=== PATIENT | male | born 1955 | race Caucasian/White ===

== ENCOUNTER 2021-04-16 12:57 | Inpatient (IN) ==
[2021-04-16] MEDS ORDERED: 0.9 % Sodium Chloride 1,000 ML IVC ONE ×2 (13:03→16:00)
[2021-04-16 13:25] LABS: Basophils % 0.2 %; Hematocrit 45.2 % (37.5-50.1); Hemoglobin 14.9 g/dL (12.9-16.9); Lymphocytes # 0.8 K/mcL (0.6-4.6); Mean Corpuscular Hemoglobin 29.4 pg (28.0-33.3); Mean Corpuscular Volume 89.3 fL (83.0-100.0); Mean Platelet Volume 10.9 fL (9.4-12.4); Monocytes # 0.7 K/mcL (0.0-1.3); Monocytes % 7.8 %; Neutrophils # 7.6 K/mcL (1.6-8.9); Platelet Count 251 K/mcL (140-400); Red Blood Count 5.06 M/mcL (4.19-5.50); Red Cell Distribution Width 13.7 % (11.5-14.5); White Blood Count 9.3 K/mcL (4.3-11.1)
[2021-04-16] MEDS ORDERED: GI Cocktail 40 ML EACH PO ONE (13:47)
[2021-04-16] MEDS ORDERED: Pantoprazole 40 MG VIAL IVP ONE (13:47)
[2021-04-16 13:50] LABS: Calcium 9.2 mg/dL (8.6-10.3); Potassium 5.1 mEq/L (3.5-5.1)
[2021-04-16] MEDS ORDERED: Insulin Human Regular 20 UNIT in 0.9 % Sodium Chloride 10 ML IV ONE (13:50)
[2021-04-16 16:28] LABS: Calcium 8.7 mg/dL (8.6-10.3)
[2021-04-16] MEDS ORDERED: cefTRIAXone 1,000 MG in Water for inj. (sterile) 10 ML IVP ONE (16:32)
[2021-04-16 19:17] LABS: ABG Base Excess -16 mEq/L (-2 to 3); ABG HCO3 8 mEq/L (21-27); ABG Oxygen Saturation 97 % (95-98); ABG PCO2 17 mmHg (35-45); ABG PH 7.28 pH Units (7.32-7.45); ABG PO2 98 mmHg (85-104); ABG TCO2 8 mEq/L (20-26)
[2021-04-17 07:45] LABS: Calcium 8.7 mg/dL (8.6-10.3); Potassium 4.2 mEq/L (3.5-5.1)
[2021-04-17 07:49] LABS: Bilirubin,Urine Large (Negative); Blood,Urine Negative (Negative); Clarity,Urine Clear (Clear); Color,Urine Yellow (Yellow); Glucose,Urine (UA) >=1000 mg/dL (Normal); Ketones,Urine 80 mg/dL (Negative); Leukocyte Esterase,Urine Negative (Negative); Nitrite,Urine Negative (Negative); Protein,Urine 30 mg/dL (Neg-Trace); Specific Gravity,Urine >= 1.030 (1.010-1.025); Urobilinogen,Urine Normal (Normal)
[2021-04-17 08:07] LABS: Hyaline Casts,Urine Few per lpf (None Seen); Mucus,Urine Few per lpf (None-Few)
[2021-04-17 08:08] LABS: Bacteria,Urine Moderate per hpf (None-Few); WBC,Urine 0-3 per hpf (0-3)
[2021-04-17 08:29] LABS: ABG Base Excess -11 mEq/L (-2 to 3); ABG HCO3 13 mEq/L (21-27); ABG Oxygen Saturation 95 % (95-98); ABG PCO2 23 mmHg (35-45); ABG PH 7.36 pH Units (7.32-7.45); ABG PO2 78 mmHg (85-104); ABG TCO2 14 mEq/L (20-26)
[2021-04-17] MEDS ORDERED: Naloxone 0.4 MG/ML INJ IVP PRN (10:14)
[2021-04-17] MEDS ORDERED: Dextrose Gel 15 GM/37.5 ML TUBE PO PRN ×2 (10:19)
[2021-04-17] MEDS ORDERED: D5% in Water 1,000 ML IVC PRN (10:19)
[2021-04-17] MEDS ORDERED: *HR* Dextrose 50 % in Water (Syg) 50 ML SYRINGE IVP PRN (10:19)
[2021-04-17] MEDS ORDERED: hydrALAZINE 10 MG TABLET PO PRN (11:04)
[2021-04-17] MEDS: 0.9 % Sodium Chloride 1,000 ML IVC SCH ×2 (12:14→20:21)
[2021-04-17] MEDS: Insulin LISPRO 300 UNITS/3 ML VIAL SUBQ SCH ×3 (12:25→20:21)
[2021-04-17] MEDS: Famotidine 20 MG TABLET PO SCH ×2 (12:29→20:20)
[2021-04-17] MEDS: amLODIPine 5 MG TABLET PO SCH (12:29)
[2021-04-17 17:50] LABS: Estimated Average Glucose 355 mg/dl
[2021-04-17] MEDS ORDERED: Acetaminophen 325 MG TABLET PO PRN (20:43)
[2021-04-17] MEDS ORDERED: *HR* LORazepam 1 MG TABLET PO ONE (23:09)
[2021-04-18 04:35] LABS: Basophils % 0.2 %; Hematocrit 38.9 % (37.5-50.1); Hemoglobin 13.8 g/dL (12.9-16.9); Immature Granulocytes % 0.7 % (0-4); Lymphocytes # 0.8 K/mcL (0.6-4.6); Lymphocytes % 14.5 %; Mean Corpuscular HGB Conc 35.5 g/dL (31.6-35.5); Mean Corpuscular Hemoglobin 29.6 pg (28.0-33.3); Mean Corpuscular Volume 83.5 fL (83.0-100.0); Mean Platelet Volume 10.8 fL (9.4-12.4); Monocytes # 0.7 K/mcL (0.0-1.3); Monocytes % 13.2 %; Neutrophils # 3.9 K/mcL (1.6-8.9); Platelet Count 165 K/mcL (140-400); Red Blood Count 4.66 M/mcL (4.19-5.50); Red Cell Distribution Width 13.8 % (11.5-14.5); Segmented Neutrophils % 71.4 %; White Blood Count 5.5 K/mcL (4.3-11.1)
[2021-04-18 04:47] LABS: Alanine Aminotransferase 7 Units/L (7-52); Albumin 3.2 g/dL (3.5-5.7); Alkaline Phosphatase 48 Units/L (34-104); Aspartate Amino Transferase 12 Units/L (13-39); BUN/Creatinine Ratio 24 (6-26); Bilirubin,Total 0.4 mg/dL (0.3-1.0); Blood Urea Nitrogen 30 mg/dL (8-23); Calcium 8.4 mg/dL (8.6-10.3); Carbon Dioxide 18 mEq/L (23-29); Chloride 98 mEq/L (98-107); Globulin 3.2 g/dL (2.4-3.5); Glucose 317 mg/dL (70-105); Osmolality,Calculated 300 (280-300); Sodium 136 mEq/L (136-145); Total Protein 6.4 g/dL (6.4-8.9); eGFR For African Americans > 60 (> 60); eGFR For Non-African Americans 58 (> 60)
[2021-04-18 04:48] LABS: BUN/Creatinine Ratio 23 (6-26); Blood Urea Nitrogen 29 mg/dL (8-23); Calcium 8.4 mg/dL (8.6-10.3); Carbon Dioxide 19 mEq/L (23-29); Chloride 98 mEq/L (98-107); Glucose 312 mg/dL (70-105); Osmolality,Calculated 300 (280-300); Sodium 136 mEq/L (136-145); eGFR For African Americans > 60 (> 60); eGFR For Non-African Americans 58 (> 60)
[2021-04-18] MEDS: *HR* Enoxaparin 40 MG/0.4 ML SYRINGE SQ SCH (06:11)
[2021-04-18] MEDS: Celecoxib 100 MG CAPSULE PO SCH (08:51)
[2021-04-18] MEDS: Fenofibrate 54 MG TABLET PO SCH (08:51)
[2021-04-18] MEDS: Famotidine 20 MG TABLET PO SCH ×2 (08:51→20:21)
[2021-04-18] MEDS: amLODIPine 5 MG TABLET PO SCH (08:51)
[2021-04-18] MEDS: Insulin LISPRO 300 UNITS/3 ML VIAL SUBQ SCH ×4 (08:52→20:22)
[2021-04-18] MEDS: 0.9 % Sodium Chloride w KCl 20 MEQ/1,000 ML MLS IVC SCH ×7 (09:08→09:55)
[2021-04-18] MEDS: 0.9 % Sodium Chloride 1,000 ML IVC SCH ×2 (10:42→20:34)
[2021-04-19] MEDS: 0.9 % Sodium Chloride 1,000 ML IVC SCH (04:58)
[2021-04-19] MEDS: *HR* Enoxaparin 40 MG/0.4 ML SYRINGE SQ SCH (04:58)
[2021-04-19 08:10] LABS: Basophils % 0.5 %; Hematocrit 39.7 % (37.5-50.1); Hemoglobin 13.2 g/dL (12.9-16.9); Immature Granulocytes % 1.4 % (0-4); Lymphocytes % 18.7 %; Mean Corpuscular HGB Conc 33.2 g/dL (31.6-35.5); Mean Corpuscular Hemoglobin 29.1 pg (28.0-33.3); Mean Corpuscular Volume 87.6 fL (83.0-100.0); Mean Platelet Volume 10.6 fL (9.4-12.4); Monocytes # 0.5 K/mcL (0.0-1.3); Monocytes % 8.3 %; Neutrophils # 3.9 K/mcL (1.6-8.9); Platelet Count 142 K/mcL (140-400); Red Blood Count 4.53 M/mcL (4.19-5.50); Red Cell Distribution Width 13.9 % (11.5-14.5); Segmented Neutrophils % 71.1 %; White Blood Count 5.6 K/mcL (4.3-11.1)
[2021-04-19 08:25] LABS: BUN/Creatinine Ratio 15 (6-26); Blood Urea Nitrogen 14 mg/dL (8-23); Calcium 7.9 mg/dL (8.6-10.3); Carbon Dioxide 14 mEq/L (23-29); Chloride 100 mEq/L (98-107); Glucose 264 mg/dL (70-105); Osmolality,Calculated 294 (280-300); Potassium 3.9 mEq/L (3.5-5.1); Sodium 137 mEq/L (136-145); eGFR For African Americans > 60 (> 60); eGFR For Non-African Americans > 60 (> 60)
[2021-04-19] MEDS: Insulin LISPRO 300 UNITS/3 ML VIAL SUBQ SCH ×4 (08:37→21:16)
[2021-04-19] MEDS: Celecoxib 100 MG CAPSULE PO SCH (08:38)
[2021-04-19] MEDS: Famotidine 20 MG TABLET PO SCH ×2 (08:38→21:10)
[2021-04-19] MEDS: Fenofibrate 54 MG TABLET PO SCH (08:38)
[2021-04-19] MEDS: amLODIPine 5 MG TABLET PO SCH (08:38)
[2021-04-19] MEDS ORDERED: Benzonatate 100 MG CAPSULE PO PRN (15:24)
[2021-04-20] MEDS: *HR* Enoxaparin 40 MG/0.4 ML SYRINGE SQ SCH (06:38)
[2021-04-20 07:04] LABS: Hematocrit 37.9 % (37.5-50.1); Hemoglobin 13.1 g/dL (12.9-16.9); Mean Corpuscular HGB Conc 34.6 g/dL (31.6-35.5); Mean Corpuscular Hemoglobin 29.4 pg (28.0-33.3); Mean Platelet Volume 10.6 fL (9.4-12.4); Platelet Count 161 K/mcL (140-400); Red Blood Count 4.46 M/mcL (4.19-5.50); Red Cell Distribution Width 13.6 % (11.5-14.5); White Blood Count 6.4 K/mcL (4.3-11.1)
[2021-04-20 07:35] LABS: BUN/Creatinine Ratio 13 (6-26); Blood Urea Nitrogen 12 mg/dL (8-23); Calcium 8.4 mg/dL (8.6-10.3); Carbon Dioxide 17 mEq/L (23-29); Chloride 99 mEq/L (98-107); Glucose 261 mg/dL (70-105); Osmolality,Calculated 295 (280-300); Potassium 3.9 mEq/L (3.5-5.1); Sodium 138 mEq/L (136-145); eGFR For African Americans > 60 (> 60); eGFR For Non-African Americans > 60 (> 60)
[2021-04-20] MEDS: Fenofibrate 54 MG TABLET PO SCH (08:32)
[2021-04-20] MEDS: Famotidine 20 MG TABLET PO SCH ×3 (08:32→21:50)
[2021-04-20] MEDS: Celecoxib 100 MG CAPSULE PO SCH (08:32)
[2021-04-20] MEDS: Insulin LISPRO 300 UNITS/3 ML VIAL SUBQ SCH ×5 (08:32→21:52)
[2021-04-20] MEDS: amLODIPine 5 MG TABLET PO SCH (08:33)
[2021-04-20] MEDS: polyethylene glycoL 3350 17 GM POWD.PACK PO SCH (16:58)
[2021-04-20] MEDS: QUEtiapine Fumarate 25 MG TABLET PO SCH ×2 (20:41→21:51)
[2021-04-20] MEDS ORDERED: QUEtiapine Fumarate 25 MG TABLET PO SCH (21:00)
[2021-04-21] MEDS: *HR* Enoxaparin 40 MG/0.4 ML SYRINGE SQ SCH (05:36)
[2021-04-21 07:18] LABS: Hematocrit 38.1 % (37.5-50.1); Hemoglobin 13.3 g/dL (12.9-16.9); Mean Corpuscular HGB Conc 34.9 g/dL (31.6-35.5); Mean Corpuscular Hemoglobin 29.4 pg (28.0-33.3); Mean Corpuscular Volume 84.3 fL (83.0-100.0); Mean Platelet Volume 10.3 fL (9.4-12.4); Platelet Count 174 K/mcL (140-400); Red Blood Count 4.52 M/mcL (4.19-5.50); Red Cell Distribution Width 13.2 % (11.5-14.5); White Blood Count 4.3 K/mcL (4.3-11.1)
[2021-04-21 07:35] LABS: Alanine Aminotransferase 7 Units/L (7-52); Albumin/Globulin Ratio 0.9 (1.1-2.2); Alkaline Phosphatase 52 Units/L (34-104); Aspartate Amino Transferase 13 Units/L (13-39); BUN/Creatinine Ratio 16 (6-26); Bilirubin,Total 0.4 mg/dL (0.3-1.0); Blood Urea Nitrogen 13 mg/dL (8-23); Calcium 8.7 mg/dL (8.6-10.3); Carbon Dioxide 24 mEq/L (23-29); Chloride 100 mEq/L (98-107); Globulin 3.3 g/dL (2.4-3.5); Glucose 315 mg/dL (70-105); Osmolality,Calculated 298 (280-300); Potassium 3.9 mEq/L (3.5-5.1); Sodium 138 mEq/L (136-145); Total Protein 6.3 g/dL (6.4-8.9); eGFR For African Americans > 60 (> 60); eGFR For Non-African Americans > 60 (> 60)
[2021-04-21] MEDS: Celecoxib 100 MG CAPSULE PO SCH (10:00)
[2021-04-21] MEDS: polyethylene glycoL 3350 17 GM POWD.PACK PO SCH (10:00)
[2021-04-21] MEDS: Insulin LISPRO 300 UNITS/3 ML VIAL SUBQ SCH ×4 (10:00→20:22)
[2021-04-21] MEDS: Famotidine 20 MG TABLET PO SCH ×2 (10:00→20:08)
[2021-04-21] MEDS: Fenofibrate 54 MG TABLET PO SCH (10:00)
[2021-04-21] MEDS: amLODIPine 5 MG TABLET PO SCH (10:00)
[2021-04-21 10:24] LABS: Lymphocytes # 1.5 K/mcL (0.6-4.6); Monocytes # 0.3 K/mcL (0.0-1.3); Neutrophils # 2.5 K/mcL (1.6-8.9); Platelet Estimate Normal (Normal)
[2021-04-21] MEDS: Insulin DETEMIR 100 UNIT/ML X5UNITS SUBQ SCH (17:37)
[2021-04-21] MEDS: QUEtiapine Fumarate 25 MG TABLET PO SCH (20:08)
[2021-04-21] MEDS ORDERED: Insulin DETEMIR 100 UNIT/ML X5UNITS SUBQ SCH (21:00)
[2021-04-22] MEDS: *HR* Enoxaparin 40 MG/0.4 ML SYRINGE SQ SCH (06:03)
[2021-04-22 07:59] LABS: Hematocrit 40.5 % (37.5-50.1); Hemoglobin 13.8 g/dL (12.9-16.9); Mean Corpuscular HGB Conc 34.1 g/dL (31.6-35.5); Mean Corpuscular Hemoglobin 29.4 pg (28.0-33.3); Mean Corpuscular Volume 86.4 fL (83.0-100.0); Mean Platelet Volume 10.8 fL (9.4-12.4); Platelet Count 188 K/mcL (140-400); Red Blood Count 4.69 M/mcL (4.19-5.50); Red Cell Distribution Width 13.3 % (11.5-14.5); White Blood Count 4.9 K/mcL (4.3-11.1)
[2021-04-22] MEDS: Insulin LISPRO 300 UNITS/3 ML VIAL SUBQ SCH ×4 (08:51→23:25)
[2021-04-22] MEDS: Insulin DETEMIR 100 UNIT/ML X5UNITS SUBQ SCH (08:51)
[2021-04-22] MEDS: polyethylene glycoL 3350 17 GM POWD.PACK PO SCH (08:51)
[2021-04-22] MEDS: Celecoxib 100 MG CAPSULE PO SCH (08:53)
[2021-04-22] MEDS: Famotidine 20 MG TABLET PO SCH ×2 (08:53→21:37)
[2021-04-22] MEDS: Fenofibrate 54 MG TABLET PO SCH (08:53)
[2021-04-22] MEDS: amLODIPine 5 MG TABLET PO SCH (08:54)
[2021-04-22 11:10] LABS: Lymphocytes # 1.7 K/mcL (0.6-4.6); Monocytes # 0.2 K/mcL (0.0-1.3); Platelet Estimate Normal (Normal); Smudge Cells Present (Not Present)
[2021-04-22] MEDS ORDERED: Insulin LISPRO 300 UNITS/3 ML VIAL SUBQ SCH (17:00)
[2021-04-22] MEDS ORDERED: Insulin DETEMIR 100 UNIT/ML X5UNITS SUBQ SCH (21:00)
[2021-04-22] MEDS: QUEtiapine Fumarate 25 MG TABLET PO SCH (21:37)
[2021-04-23] MEDS: *HR* Enoxaparin 40 MG/0.4 ML SYRINGE SQ SCH (05:04)
[2021-04-23 06:57] VITALS: BP 115/70; PULSE 115; RESP 18; TEMP 98.6; O2SAT 95
== END 2021-04-23 08:01 | DRG 177 ==
LOC: INPPIK 12:57 → EMEROOPIK 12:57 → INPPIK 04-17 10:50
PROVIDERS: ADMIT Internal Medicine; ATTEND Internal Medicine

== ENCOUNTER 2021-04-22 16:40 | Inpatient (IN) ==
[2021-04-22] MEDS ORDERED: D5% in Water 1,000 ML IVC PRN (16:59)
[2021-04-22] MEDS ORDERED: Dextrose Gel 15 GM/37.5 ML TUBE PO PRN ×2 (16:59)
[2021-04-22] MEDS ORDERED: *HR* Dextrose 50 % in Water (Syg) 50 ML SYRINGE IVP PRN (16:59)
[2021-04-22] MEDS ORDERED: Insulin DETEMIR 100 UNIT/ML X5UNITS SUBQ SCH (21:00)
[2021-04-23 06:53] LABS: Eosinophils # 0.1 K/mcL (0.0-0.6); Hematocrit 36.3 % (37.5-50.1); Hemoglobin 12.7 g/dL (12.9-16.9); Lymphocytes # 1.3 K/mcL (0.6-4.6); Mean Corpuscular Hemoglobin 29.6 pg (28.0-33.3); Mean Corpuscular Volume 84.6 fL (83.0-100.0); Platelet Count 161 K/mcL (140-400); Red Blood Count 4.29 M/mcL (4.19-5.50); Red Cell Distribution Width 12.9 % (11.5-14.5); White Blood Count 4.2 K/mcL (4.3-11.1)
[2021-04-23 07:25] LABS: BUN/Creatinine Ratio 16 (6-26); Blood Urea Nitrogen 11 mg/dL (8-23); Calcium 8.4 mg/dL (8.6-10.3); Carbon Dioxide 28 mEq/L (23-29); Chloride 101 mEq/L (98-107); Glucose 226 mg/dL (70-105); Osmolality,Calculated 292 (280-300); Potassium 3.3 mEq/L (3.5-5.1); Sodium 138 mEq/L (136-145); eGFR For African Americans > 60 (> 60); eGFR For Non-African Americans > 60 (> 60)
[2021-04-23 07:32] LABS: Large Platelets Present (Not Present); Monocytes # 0.5 K/mcL (0.0-1.3); Platelet Estimate Normal (Normal)
[2021-04-23] MEDS: Insulin LISPRO 300 UNITS/3 ML VIAL SUBQ SCH ×8 (08:55→21:03)
[2021-04-23] MEDS: amLODIPine 5 MG TABLET PO SCH (10:20)
[2021-04-23] MEDS: Fenofibrate 54 MG TABLET PO SCH (10:20)
[2021-04-23] MEDS: Celecoxib 100 MG CAPSULE PO SCH (10:21)
[2021-04-23] MEDS: Insulin DETEMIR 100 UNIT/ML X5UNITS SUBQ SCH ×2 (10:33→21:03)
[2021-04-23] MEDS ORDERED: Insulin LISPRO 300 UNITS/3 ML VIAL SUBQ SCH ×3 (11:30→17:00)
[2021-04-23] MEDS ORDERED: Potassium Chloride Elixir 20 MEQ/15 ML UDC PO ONE (12:36)
[2021-04-23] MEDS ORDERED: Insulin DETEMIR 100 UNIT/ML X5UNITS SUBQ SCH (21:00)
[2021-04-23] MEDS: Famotidine 20 MG TABLET PO SCH (21:03)
[2021-04-23] MEDS: QUEtiapine Fumarate 25 MG TABLET PO SCH (21:03)
[2021-04-24] MEDS: *HR* Enoxaparin 40 MG/0.4 ML SYRINGE SQ SCH (06:40)
[2021-04-24] MEDS: Fenofibrate 54 MG TABLET PO SCH (09:09)
[2021-04-24] MEDS: amLODIPine 5 MG TABLET PO SCH (09:09)
[2021-04-24] MEDS: Famotidine 20 MG TABLET PO SCH ×2 (09:09→21:00)
[2021-04-24] MEDS: Celecoxib 100 MG CAPSULE PO SCH (09:10)
[2021-04-24] MEDS: Insulin DETEMIR 100 UNIT/ML X5UNITS SUBQ SCH ×2 (09:12→21:00)
[2021-04-24] MEDS: Insulin LISPRO 300 UNITS/3 ML VIAL SUBQ SCH ×7 (09:13→21:01)
[2021-04-24] MEDS: QUEtiapine Fumarate 25 MG TABLET PO SCH (21:00)
[2021-04-25] MEDS: *HR* Enoxaparin 40 MG/0.4 ML SYRINGE SQ SCH (05:34)
[2021-04-25] MEDS: Insulin DETEMIR 100 UNIT/ML X5UNITS SUBQ SCH ×2 (09:28→21:28)
[2021-04-25] MEDS: Insulin LISPRO 300 UNITS/3 ML VIAL SUBQ SCH ×7 (09:29→21:29)
[2021-04-25] MEDS: amLODIPine 5 MG TABLET PO SCH (09:30)
[2021-04-25] MEDS: Famotidine 20 MG TABLET PO SCH ×2 (09:30→21:24)
[2021-04-25] MEDS: Celecoxib 100 MG CAPSULE PO SCH (09:30)
[2021-04-25] MEDS: Fenofibrate 54 MG TABLET PO SCH (09:30)
[2021-04-25] MEDS: QUEtiapine Fumarate 25 MG TABLET PO SCH (21:24)
[2021-04-26] MEDS: *HR* Enoxaparin 40 MG/0.4 ML SYRINGE SQ SCH (05:28)
[2021-04-26] MEDS: Insulin LISPRO 300 UNITS/3 ML VIAL SUBQ SCH ×7 (09:13→21:09)
[2021-04-26] MEDS: Famotidine 20 MG TABLET PO SCH ×2 (09:14→21:10)
[2021-04-26] MEDS: Fenofibrate 54 MG TABLET PO SCH (09:14)
[2021-04-26] MEDS: Celecoxib 100 MG CAPSULE PO SCH (09:14)
[2021-04-26] MEDS: Insulin DETEMIR 100 UNIT/ML X5UNITS SUBQ SCH ×2 (09:15→21:14)
[2021-04-26] MEDS: amLODIPine 5 MG TABLET PO SCH (09:15)
[2021-04-26] MEDS: QUEtiapine Fumarate 25 MG TABLET PO SCH (21:10)
[2021-04-27] MEDS: *HR* Enoxaparin 40 MG/0.4 ML SYRINGE SQ SCH (05:12)
[2021-04-27] MEDS: Insulin LISPRO 300 UNITS/3 ML VIAL SUBQ SCH ×7 (08:20→20:58)
[2021-04-27] MEDS: Insulin DETEMIR 100 UNIT/ML X5UNITS SUBQ SCH ×2 (08:21→21:02)
[2021-04-27] MEDS: Famotidine 20 MG TABLET PO SCH ×2 (08:21→21:03)
[2021-04-27] MEDS: Fenofibrate 54 MG TABLET PO SCH (08:21)
[2021-04-27] MEDS: amLODIPine 5 MG TABLET PO SCH (08:21)
[2021-04-27] MEDS: Celecoxib 100 MG CAPSULE PO SCH (08:21)
[2021-04-27] MEDS: QUEtiapine Fumarate 25 MG TABLET PO SCH (21:03)
[2021-04-28] MEDS: *HR* Enoxaparin 40 MG/0.4 ML SYRINGE SQ SCH (05:53)
[2021-04-28] MEDS: Fenofibrate 54 MG TABLET PO SCH (08:46)
[2021-04-28] MEDS: amLODIPine 5 MG TABLET PO SCH (08:46)
[2021-04-28] MEDS: Celecoxib 100 MG CAPSULE PO SCH (08:46)
[2021-04-28] MEDS: Famotidine 20 MG TABLET PO SCH ×2 (08:46→20:24)
[2021-04-28] MEDS: Insulin DETEMIR 100 UNIT/ML X5UNITS SUBQ SCH ×2 (08:50→20:24)
[2021-04-28] MEDS: Insulin LISPRO 300 UNITS/3 ML VIAL SUBQ SCH ×7 (08:53→20:24)
[2021-04-28] MEDS: polyethylene glycoL 3350 17 GM POWD.PACK PO SCH (20:19)
[2021-04-28] MEDS: Sennosides/Docusate Sodium TABLET PO PRN (20:24)
[2021-04-28] MEDS: QUEtiapine Fumarate 25 MG TABLET PO SCH (20:24)
[2021-04-29] MEDS: *HR* Enoxaparin 40 MG/0.4 ML SYRINGE SQ SCH (05:00)
[2021-04-29 06:43] LABS: Eosinophils # 0.1 K/mcL (0.0-0.6); Hematocrit 35.6 % (37.5-50.1); Hemoglobin 11.7 g/dL (12.9-16.9); Mean Corpuscular HGB Conc 32.9 g/dL (31.6-35.5); Mean Corpuscular Hemoglobin 29.1 pg (28.0-33.3); Mean Corpuscular Volume 88.6 fL (83.0-100.0); Mean Platelet Volume 9.7 fL (9.4-12.4); Nucleated Red Blood Cells 0.5 /100 WBC (0); Platelet Count 234 K/mcL (140-400); Red Blood Count 4.02 M/mcL (4.19-5.50); White Blood Count 6.3 K/mcL (4.3-11.1)
[2021-04-29 07:15] LABS: BUN/Creatinine Ratio 20 (6-26); Blood Urea Nitrogen 16 mg/dL (8-23); Calcium 7.9 mg/dL (8.6-10.3); Carbon Dioxide 22 mEq/L (23-29); Chloride 104 mEq/L (98-107); Glucose 218 mg/dL (70-105); Osmolality,Calculated 290 (280-300); Potassium 4.1 mEq/L (3.5-5.1); Sodium 136 mEq/L (136-145); eGFR For African Americans > 60 (> 60); eGFR For Non-African Americans > 60 (> 60)
[2021-04-29 08:09] LABS: Anisocytosis 1+ (Not Present); Lymphocytes # 2.4 K/mcL (0.6-4.6); Monocytes # 0.8 K/mcL (0.0-1.3); Neutrophils # 2.8 K/mcL (1.6-8.9); Platelet Estimate Normal (Normal); Polychromasia 1+ (Not Present)
[2021-04-29] MEDS: Famotidine 20 MG TABLET PO SCH ×2 (08:46→21:26)
[2021-04-29] MEDS: Celecoxib 100 MG CAPSULE PO SCH (08:46)
[2021-04-29] MEDS: amLODIPine 5 MG TABLET PO SCH (08:46)
[2021-04-29] MEDS: Fenofibrate 54 MG TABLET PO SCH (08:46)
[2021-04-29] MEDS: Sennosides/Docusate Sodium TABLET PO PRN (08:46)
[2021-04-29] MEDS: polyethylene glycoL 3350 17 GM POWD.PACK PO SCH (08:46)
[2021-04-29] MEDS: Insulin LISPRO 300 UNITS/3 ML VIAL SUBQ SCH ×7 (08:50→21:27)
[2021-04-29] MEDS: Insulin DETEMIR 100 UNIT/ML X5UNITS SUBQ SCH ×2 (09:30→21:26)
[2021-04-29] MEDS: QUEtiapine Fumarate 25 MG TABLET PO SCH (21:26)
[2021-04-30] MEDS: *HR* Enoxaparin 40 MG/0.4 ML SYRINGE SQ SCH (06:02)
[2021-04-30] MEDS: Fenofibrate 54 MG TABLET PO SCH (09:15)
[2021-04-30] MEDS: Famotidine 20 MG TABLET PO SCH ×2 (09:15→20:12)
[2021-04-30] MEDS: Celecoxib 100 MG CAPSULE PO SCH (09:15)
[2021-04-30] MEDS: Insulin DETEMIR 100 UNIT/ML X5UNITS SUBQ SCH ×2 (09:15→20:13)
[2021-04-30] MEDS: amLODIPine 5 MG TABLET PO SCH (09:15)
[2021-04-30] MEDS: Insulin LISPRO 300 UNITS/3 ML VIAL SUBQ SCH ×7 (09:16→20:16)
[2021-04-30] MEDS: polyethylene glycoL 3350 17 GM POWD.PACK PO SCH (09:19)
[2021-04-30] MEDS: QUEtiapine Fumarate 25 MG TABLET PO SCH (20:12)
[2021-05-01] MEDS: *HR* Enoxaparin 40 MG/0.4 ML SYRINGE SQ SCH (05:21)
[2021-05-01] MEDS: Fenofibrate 54 MG TABLET PO SCH (08:53)
[2021-05-01] MEDS: Insulin LISPRO 300 UNITS/3 ML VIAL SUBQ SCH ×7 (08:53→21:50)
[2021-05-01] MEDS: amLODIPine 5 MG TABLET PO SCH (08:54)
[2021-05-01] MEDS: Famotidine 20 MG TABLET PO SCH ×2 (08:54→21:43)
[2021-05-01] MEDS: Celecoxib 100 MG CAPSULE PO SCH (08:54)
[2021-05-01] MEDS: polyethylene glycoL 3350 17 GM POWD.PACK PO SCH (08:55)
[2021-05-01] MEDS: Insulin DETEMIR 100 UNIT/ML X5UNITS SUBQ SCH ×2 (08:55→21:43)
[2021-05-01] MEDS: QUEtiapine Fumarate 25 MG TABLET PO SCH (21:43)
[2021-05-02] MEDS: *HR* Enoxaparin 40 MG/0.4 ML SYRINGE SQ SCH (05:30)
[2021-05-02] MEDS: Insulin DETEMIR 100 UNIT/ML X5UNITS SUBQ SCH ×2 (09:10→21:14)
[2021-05-02] MEDS: amLODIPine 5 MG TABLET PO SCH (09:10)
[2021-05-02] MEDS: Fenofibrate 54 MG TABLET PO SCH (09:10)
[2021-05-02] MEDS: Famotidine 20 MG TABLET PO SCH ×2 (09:10→21:09)
[2021-05-02] MEDS: Celecoxib 100 MG CAPSULE PO SCH (09:10)
[2021-05-02] MEDS: Insulin LISPRO 300 UNITS/3 ML VIAL SUBQ SCH ×7 (09:11→21:14)
[2021-05-02] MEDS: polyethylene glycoL 3350 17 GM POWD.PACK PO SCH (09:15)
[2021-05-02] MEDS: QUEtiapine Fumarate 25 MG TABLET PO SCH (21:09)
[2021-05-03] MEDS: *HR* Enoxaparin 40 MG/0.4 ML SYRINGE SQ SCH (05:36)
[2021-05-03] MEDS: Celecoxib 100 MG CAPSULE PO SCH (09:33)
[2021-05-03] MEDS: amLODIPine 5 MG TABLET PO SCH (09:33)
[2021-05-03] MEDS: Fenofibrate 54 MG TABLET PO SCH (09:33)
[2021-05-03] MEDS: Famotidine 20 MG TABLET PO SCH ×2 (09:33→20:50)
[2021-05-03] MEDS: polyethylene glycoL 3350 17 GM POWD.PACK PO SCH (09:34)
[2021-05-03] MEDS: Insulin DETEMIR 100 UNIT/ML X5UNITS SUBQ SCH ×2 (09:36→20:50)
[2021-05-03] MEDS: Insulin LISPRO 300 UNITS/3 ML VIAL SUBQ SCH ×7 (09:36→20:51)
[2021-05-03] MEDS: QUEtiapine Fumarate 25 MG TABLET PO SCH (20:50)
[2021-05-04] MEDS: *HR* Enoxaparin 40 MG/0.4 ML SYRINGE SQ SCH (05:55)
[2021-05-04] MEDS: Celecoxib 100 MG CAPSULE PO SCH (08:08)
[2021-05-04] MEDS: Famotidine 20 MG TABLET PO SCH ×2 (08:09→20:38)
[2021-05-04] MEDS: Fenofibrate 54 MG TABLET PO SCH (08:09)
[2021-05-04] MEDS: amLODIPine 5 MG TABLET PO SCH (08:10)
[2021-05-04] MEDS: Insulin LISPRO 300 UNITS/3 ML VIAL SUBQ SCH ×7 (08:11→20:39)
[2021-05-04] MEDS: Insulin DETEMIR 100 UNIT/ML X5UNITS SUBQ SCH ×2 (08:13→20:38)
[2021-05-04] MEDS: polyethylene glycoL 3350 17 GM POWD.PACK PO SCH (08:19)
[2021-05-04] MEDS: QUEtiapine Fumarate 25 MG TABLET PO SCH (20:38)
[2021-05-05] MEDS: *HR* Enoxaparin 40 MG/0.4 ML SYRINGE SQ SCH (06:26)
[2021-05-05] MEDS: Famotidine 20 MG TABLET PO SCH ×2 (10:06→22:32)
[2021-05-05] MEDS: Fenofibrate 54 MG TABLET PO SCH (10:06)
[2021-05-05] MEDS: Celecoxib 100 MG CAPSULE PO SCH (10:06)
[2021-05-05] MEDS: Insulin DETEMIR 100 UNIT/ML X5UNITS SUBQ SCH ×2 (10:06→22:32)
[2021-05-05] MEDS: amLODIPine 5 MG TABLET PO SCH (10:06)
[2021-05-05] MEDS: Insulin LISPRO 300 UNITS/3 ML VIAL SUBQ SCH ×7 (10:07→22:30)
[2021-05-05] MEDS: polyethylene glycoL 3350 17 GM POWD.PACK PO SCH (10:08)
[2021-05-05] MEDS: QUEtiapine Fumarate 25 MG TABLET PO SCH (22:32)
[2021-05-06] MEDS: *HR* Enoxaparin 40 MG/0.4 ML SYRINGE SQ SCH (06:35)
[2021-05-06] MEDS: Insulin DETEMIR 100 UNIT/ML X5UNITS SUBQ SCH ×2 (08:37→20:49)
[2021-05-06] MEDS: Insulin LISPRO 300 UNITS/3 ML VIAL SUBQ SCH ×7 (08:37→20:50)
[2021-05-06] MEDS: Famotidine 20 MG TABLET PO SCH ×2 (08:38→20:49)
[2021-05-06] MEDS: amLODIPine 5 MG TABLET PO SCH (08:38)
[2021-05-06] MEDS: Fenofibrate 54 MG TABLET PO SCH (08:38)
[2021-05-06] MEDS: polyethylene glycoL 3350 17 GM POWD.PACK PO SCH (08:38)
[2021-05-06] MEDS: Celecoxib 100 MG CAPSULE PO SCH (08:38)
[2021-05-06] MEDS: QUEtiapine Fumarate 25 MG TABLET PO SCH (20:49)
[2021-05-07] MEDS: *HR* Enoxaparin 40 MG/0.4 ML SYRINGE SQ SCH (06:26)
[2021-05-07] MEDS: Insulin LISPRO 300 UNITS/3 ML VIAL SUBQ SCH ×7 (09:00→21:03)
[2021-05-07] MEDS: Insulin DETEMIR 100 UNIT/ML X5UNITS SUBQ SCH ×2 (09:00→21:04)
[2021-05-07] MEDS: Celecoxib 100 MG CAPSULE PO SCH (09:01)
[2021-05-07] MEDS: amLODIPine 5 MG TABLET PO SCH (09:01)
[2021-05-07] MEDS: Fenofibrate 54 MG TABLET PO SCH (09:01)
[2021-05-07] MEDS: Famotidine 20 MG TABLET PO SCH ×2 (09:01→21:03)
[2021-05-07] MEDS: polyethylene glycoL 3350 17 GM POWD.PACK PO SCH (09:01)
[2021-05-07 18:56] VITALS: RESP 18; O2SAT 95
[2021-05-07] MEDS: QUEtiapine Fumarate 25 MG TABLET PO SCH (21:03)
[2021-05-08] MEDS: *HR* Enoxaparin 40 MG/0.4 ML SYRINGE SQ SCH (06:15)
[2021-05-08 06:25] VITALS: BP 127/84; PULSE 83; TEMP 97.7
[2021-05-08] MEDS: Fenofibrate 54 MG TABLET PO SCH (08:23)
[2021-05-08] MEDS: Celecoxib 100 MG CAPSULE PO SCH (08:23)
[2021-05-08] MEDS: Famotidine 20 MG TABLET PO SCH (08:23)
[2021-05-08] MEDS: Insulin DETEMIR 100 UNIT/ML X5UNITS SUBQ SCH (08:24)
[2021-05-08] MEDS: Insulin LISPRO 300 UNITS/3 ML VIAL SUBQ SCH ×4 (08:24→11:59)
[2021-05-08] MEDS: polyethylene glycoL 3350 17 GM POWD.PACK PO SCH (08:24)
[2021-05-08] MEDS: amLODIPine 5 MG TABLET PO SCH (08:24)
== END 2021-05-08 15:30 | disposition home health service (06) | DRG 177 ==
LOC: INPPIK 04-23 08:32
PROVIDERS: ADMIT Family Medicine; ATTEND Family Medicine